=== PATIENT | male | born 1965 | race Caucasian/White ===

== ENCOUNTER 2018-03-19 11:02 | Outpatient (REF) | payer OTHER, SELFPAY ==
[2018-03-19 21:16] LABS: Anion Gap 9.8 mmol/L (3-11); BUN 17 mg/dL (7-18); CO2 27.2 mmol/L (21.0-32.0); CREATININE 1.07 mg/dL (0.70-1.30); Calcium 8.8 mg/dL (8.5-10.1); Chloride 101 mmol/L (98-107); Cholesterol 102 mg/dL (50-200); Glucose 110 mg/dL (70-100); HDL Cholesterol 39 mg/dL (40-60); LDL CHOLESTEROL 47 mg/dL (<100); Potassium 5.2 mmol/L (3.5-5.1); Sodium 138 mmol/L (136-145); Triglyceride 130 mg/dL (30-150)
== END 2018-03-19 11:22 ==
LOC: NCHCN 11:02
PROVIDERS: PCP Internal Medicine; Visit Provider Internal Medicine
DX: I10 Essential (primary) hypertension (principal); I25.10 Atherosclerotic heart disease of native coronary artery without angina pectoris
CPT/HCPCS: 80048; 80061; 83721

== ENCOUNTER 2019-01-21 17:04 | Outpatient (REF) | payer OTHER, SELFPAY ==
[2019-01-21 22:04] LABS: Anion Gap 10.3 mmol/L (3-11); BUN 10 mg/dL (7-18); CO2 27.7 mmol/L (21.0-32.0); CREATININE 1.03 mg/dL (0.70-1.30); Calcium 8.8 mg/dL (8.5-10.1); Chloride 103 mmol/L (98-107); Glucose 118 mg/dL (70-100); Potassium 4.1 mmol/L (3.5-5.1); Sodium 141 mmol/L (136-145)
== END 2019-01-21 17:24 ==
LOC: NCHCN 17:04
PROVIDERS: PCP Internal Medicine; Visit Provider Internal Medicine
DX: I10 Essential (primary) hypertension (principal); Z00.00 Encounter for general adult medical examination without abnormal findings
CPT/HCPCS: 80048